=== PATIENT | female | born 1960 | race Caucasian/White ===

== ENCOUNTER → 2023-05-07 16:48 | Outpatient (REF) | payer OTHER, SELFPAY | LOC: RAD 16:48 | PROVIDERS: ATTENDING PHYSICIAN Nurse Practitioner; FAMILY PHYSICIAN Physician Assistant Medical | DX: N30.10 Interstitial cystitis (chronic) without hematuria (principal); N39.0 Urinary tract infection, site not specified; R35.0 Frequency of micturition | CPT/HCPCS: 76770; 76856 ==

== ENCOUNTER → 2023-07-01 16:44 | Outpatient (REF) | payer OTHER, SELFPAY | LOC: HWWDC 16:44 | PROVIDERS: ATTENDING PHYSICIAN Obstetrics & Gynecology; FAMILY PHYSICIAN Physician Assistant Medical | DX: Z12.31 Encounter for screening mammogram for malignant neoplasm of breast (principal) | CPT/HCPCS: 77063; 77067 ==

== ENCOUNTER → 2023-08-01 19:25 | Outpatient (REF) | payer OTHER, SELFPAY | LOC: MRI 3T 19:25 | PROVIDERS: ATTENDING PHYSICIAN Obstetrics & Gynecology; FAMILY PHYSICIAN Physician Assistant Medical | DX: R33.9 Retention of urine, unspecified (principal); N31.9 Neuromuscular dysfunction of bladder, unspecified | CPT/HCPCS: 72141; 72158; A9575 ==

== ENCOUNTER → 2023-08-04 17:28 | Outpatient (REF) | payer OTHER, SELFPAY | LOC: MRI 3T 17:28 | PROVIDERS: ATTENDING PHYSICIAN Obstetrics & Gynecology; FAMILY PHYSICIAN Physician Assistant Medical | DX: R33.9 Retention of urine, unspecified (principal); N31.9 Neuromuscular dysfunction of bladder, unspecified | CPT/HCPCS: 72157; A9575 ==

== ENCOUNTER 2023-10-22 06:13 | Day surgery (SDC) | payer OTHER, SELFPAY ==
[2023-09-29 08:32] LABS: Hematocrit 38.5 % (37.0-47.0); Hemoglobin 13.1 g/dL (12.0-16.0); Mean Corpuscular Volume 85.4 fL (81.0-99.0); Mean Platelet Volume 11.5 fL (7.4-10.4); Platelet Count 231 10^3/uL (130-400); Red Blood Cell Count 4.51 10^6/uL (4.20-5.40); Red Cell Dist. Width 12.6 % (11.5-14.5); White Blood Cell Count 5.9 10^3/uL (4.8-10.8)
[2023-09-29 08:58] LABS: ALT (SGPT) 28 U/L (0-35); AST (SGOT) 26 U/L (14-36); Albumin 4.5 g/dl (3.5-5.0); Alkaline Phosphatase 83 U/L (38-126); Blood Urea Nitrogen 16 mg/dl (7-17); Calcium 9.9 mg/dl (8.4-10.2); Carbon Dioxide 25 mmol/L (22-30); Chloride 103 mmol/L (98-107); Glucose 149 mg/dl (70-99); Potassium 3.8 mmol/L (3.5-5.1); Sodium 139 mmol/L (135-145); Total Bilirubin 0.6 mg/dl (0.2-1.3); Total Protein 7.2 g/dl (6.3-8.2); eGFR > 60.00
[2023-09-29 09:51] VITALS: BMI 29.0
--- NOTE | 2023-10-01 16:44 | PTCARENOTE ---
Abn ECG, Dr. Barakat Notified, no further requests made.
[2023-10-14 09:07] VITALS: BMI 29.0
[2023-10-22] VITALS (18 sets, daily range): BP systolic 98–136; BP diastolic 57–78; PULSE 84; O2SAT 97; BMI 29.0
[2023-10-22 06:45] LABS: Glucose - Point of Care 159 mg/dl (70-99)
[2023-10-22] MEDS: CELEBREX 200 MG PO (06:47)
[2023-10-22] MEDS: LYRICA 150 MG PO (06:47)
[2023-10-22] MEDS: NORMOSOL-R/PLASMALYTE-A 1000 IV ×3 (06:47→22:51)
[2023-10-22] MEDS: SKELAXIN 800 MG PO (06:47)
[2023-10-22] MEDS: VANCOCIN 200 IV ×2 (06:47→20:20)
[2023-10-22] MEDS: TYLENOL 1000 MG PO ×3 (06:47→20:21)
--- NOTE | 2023-10-22 08:02 | W.DS.TRANS ---
DC Summary - Relief Charge Nurse
-
Discharge Instructions:
Discharge Diagnosis/Procedures ACDF
Diet Diabetic, Carb Controlled
Activity No strenuous activity
Driving Restrictions No driving
Instructions:
Stand-Alone Forms:
Changes to Home Medications: Yes
Discharge Medications:
DC Medications w/original date entered in [facility]
lorazepam 2 mg tablet 1.5 mg PO HS 08/24/12
metformin 1,000 mg tablet 500 mg PO BID 08/24/12
atorvastatin 80 mg tablet 80 mg PO HS 10/14/23
bupropion HCl 300 mg 24 hr tablet, extended release 300 mg PO DAILY 10/14/23
cholecalciferol (vitamin D3) 50 mcg (2,000 unit) capsule (Vitamin D3) 50 mcg PO DAILY 10/14/23
escitalopram oxalate 20 mg tablet 20 mg PO DAILY 10/14/23
eszopiclone 3 mg tablet 3 mg PO HS 10/14/23
etanercept 50 mg/mL (1 mL) subcutaneous syringe (Enbrel) 50 mg SC QWEEK 10/14/23
glimepiride 2 mg tablet 2 mg PO DAILY 10/14/23
linaclotide 290 mcg capsule (Linzess) 290 mcg PO DAILY 10/14/23
prucalopride 2 mg tablet (Motegrity) 2 mg PO DAILY 10/14/23
tamsulosin 0.4 mg capsule 0.4 mg PO DAILY 10/14/23
tirzepatide 5 mg/0.5 mL subcutaneous pen injector (Mounjaro) 5 mg SC QWEEK 10/14/23
Saccharomyces boulardii 250 mg capsule (Florastor) 250 mg PO BID #1 cap 10/22/23
acetaminophen 325 mg capsule (Tylenol) 650 mg (2 x 325 mg) PO QID #2 caps 10/22/23
clindamycin HCl 300 mg capsule 300 mg PO QID infection prevention #20 caps 10/22/23
docusate sodium 100 mg capsule (Colace) 100 mg PO BID stool softner #1 cap 10/22/23
gabapentin 300 mg capsule 300 mg PO HS sleep/pain #10 caps 10/22/23
magnesium hydroxide 400 mg/5 mL oral suspension (Milk of Magnesia) 30 ml PO HS PRN Constipation #1 mL 10/22/23
ondansetron 4 mg disintegrating tablet 4 mg PO Q6H PRN n/v #20 tabs 10/22/23
oxycodone 5 mg tablet 5 mg PO Q6H PRN 1 tab moderate pain, 2 tabs severe pain #30 tabs 10/22/23
sennosides 8.6 mg tablet (Senokot) 17.2 mg (2 x 8.6 mg) PO BID laxative #2 tabs 10/22/23
Home Medication Changes
clindamycin HCl 300 mg capsule 300 mg PO QID infection prevention #20 caps 10/22/23
gabapentin 300 mg capsule 300 mg PO HS sleep/pain #10 caps 10/22/23
ondansetron 4 mg disintegrating tablet 4 mg PO Q6H PRN n/v #20 tabs 10/22/23
oxycodone 5 mg tablet 5 mg PO Q6H PRN 1 tab moderate pain, 2 tabs severe pain #30 tabs 10/22/23
Pending Results: No
[2023-10-22 09:24] LABS: Glucose - Point of Care 190 mg/dl (70-99)
[2023-10-22] MEDS: NOVOLOG vial 1 UNITS SC ×2 (09:46→11:41)
[2023-10-22 11:32] LABS: Glucose - Point of Care 189 mg/dl (70-99)
[2023-10-22] MEDS: SENOKOT PO (12:17)
[2023-10-22] MEDS: FLOMAX PO (12:18)
--- NOTE | 2023-10-22 12:45 | PTCARENOTE ---
Pt arrived to 2S in bed. Full assessment completed. Anterior neck DSG C/D/I, cervical collar maintained. Pt drowsy but easily arouses to verbal stimuli, ambulated to the BR with assistance via NSG staff, gait steady. Neurovascular assessment WDL.
IVF initiated. Bed locked and in the lowest position, safety maintained. Oriented to room and call love.
[2023-10-22] MEDS: LINZESS PO (13:24)
[2023-10-22] MEDS: COLACE PO (13:24)
[2023-10-22] MEDS: LEXAPRO PO (13:24)
[2023-10-22] MEDS: AMARYL PO (13:24)
[2023-10-22] MEDS: NOVOLOG FLEXPEN-MODERATE RESISTANCE SC (13:24)
[2023-10-22] MEDS: WELLBUTRIN XL (24 hour extended release) PO (13:25)
[2023-10-22] MEDS: ULTRAM PO (15:23)
[2023-10-22 17:27] LABS: Glucose - Point of Care 246 mg/dl (70-99)
[2023-10-22] MEDS: NOVOLOG FLEXPEN-MODERATE RESISTANCE 3 UNITS SC (17:41)
[2023-10-22] MEDS: GLUCOPHAGE 500 MG PO (17:43)
[2023-10-22] MEDS: ULTRAM 50 MG PO ×2 (17:45→22:22)
[2023-10-22] MEDS: ANESTHETIC LOZENGE 1 LOZENGE PO (20:21)
[2023-10-22] MEDS: LYRICA 75 MG PO (20:21)
[2023-10-22] MEDS: COLACE 100 MG PO (20:21)
[2023-10-22] MEDS: SENOKOT 17.2 MG PO (20:21)
--- NOTE | 2023-10-22 22:00 | PTCARENOTE ---
Pt. c/o chest pain around 2019 specifically stating her sternum 'ached' especially when she moved or swallowed. VSS and denied any other abnormal symptoms. EKG obtained and evaluated by house PLANNING ADVISOR. Troponin drawn and WNL. No further interventions
ordered. Instructed pt. to report worsening chest pain. Will continue to monitor.
[2023-10-22 22:20] LABS: Troponin I < 0.012 ng/ml
[2023-10-22] MEDS: ATIVAN 1.5 MG PO (22:21)
[2023-10-22] MEDS: NON-FORMULARY ITEM 3 MG PO (22:21)
[2023-10-22] MEDS: LIPITOR 80 MG PO (22:22)
[2023-10-22 22:25] LABS: Glucose - Point of Care 224 mg/dl (70-99)
[2023-10-23] MEDS: ULTRAM 50 MG PO ×3 (01:59→10:54)
[2023-10-23] MEDS: TYLENOL 1000 MG PO ×3 (01:59→12:31)
[2023-10-23 05:46] LABS: Hematocrit 34.5 % (37.0-47.0); Hemoglobin 11.9 g/dL (12.0-16.0)
[2023-10-23] MEDS: LYRICA 75 MG PO (06:15)
[2023-10-23 06:17] LABS: Blood Urea Nitrogen 15 mg/dl (7-17); Calcium 9.2 mg/dl (8.4-10.2); Carbon Dioxide 26 mmol/L (22-30); Chloride 102 mmol/L (98-107); Estimated Creatinine Clearance 73 ml/min; Glucose 153 mg/dl (70-99); Potassium 4.4 mmol/L (3.5-5.1); Sodium 139 mmol/L (135-145); eGFR > 60.00
[2023-10-23] MEDS: ANESTHETIC LOZENGE 1 LOZENGE PO (06:18)
--- NOTE | 2023-10-23 07:02 | W.PN.UPDATE ---
Update Note
Progress Note Update
RN notified PUNCH [facility], patient c/o sternal pain with deep breathing. Stable VS, EKG NORMAL SINUS RHYTHM
POSSIBLE LATERAL INFARCT , AGE UNDETERMINED
Troponin negative 0.012
pain medicine given, no further complaints, likely positional. If pain continuos, will consult Stopper Maker Helper.
[2023-10-23 07:30] VITALS: BP 106/75
--- NOTE | 2023-10-23 08:03 | W.DS.TRANS ---
DC Summary - Precision Assembler Bench
-
Discharge Instructions:
Discharge Diagnosis/Procedures ACDF
Diet Diabetic, Carb Controlled
Activity No strenuous activity
Driving Restrictions No driving
Instructions:
Stand-Alone Forms: [facility] Cervical D/C Inst.
Changes to Home Medications: No
Discharge Medications:
DC Medications w/original date entered in [facility]
lorazepam 2 mg tablet 1.5 mg PO HS 08/24/12
metformin 1,000 mg tablet 500 mg PO BID 08/24/12
atorvastatin 80 mg tablet 80 mg PO HS 10/14/23
bupropion HCl 300 mg 24 hr tablet, extended release 300 mg PO DAILY 10/14/23
cholecalciferol (vitamin D3) 50 mcg (2,000 unit) capsule (Vitamin D3) 50 mcg PO DAILY 10/14/23
escitalopram oxalate 20 mg tablet 20 mg PO DAILY 10/14/23
eszopiclone 3 mg tablet 3 mg PO HS 10/14/23
etanercept 50 mg/mL (1 mL) subcutaneous syringe (Enbrel) 50 mg SC QWEEK 10/14/23
glimepiride 2 mg tablet 2 mg PO DAILY 10/14/23
linaclotide 290 mcg capsule (Linzess) 290 mcg PO DAILY 10/14/23
prucalopride 2 mg tablet (Motegrity) 2 mg PO DAILY 10/14/23
tamsulosin 0.4 mg capsule 0.4 mg PO DAILY 10/14/23
tirzepatide 5 mg/0.5 mL subcutaneous pen injector (Mounjaro) 5 mg SC QWEEK 10/14/23
Saccharomyces boulardii 250 mg capsule (Florastor) 250 mg PO BID #1 cap 10/22/23
acetaminophen 325 mg capsule (Tylenol) 650 mg (2 x 325 mg) PO QID #2 caps 10/22/23
clindamycin HCl 300 mg capsule 300 mg PO QID infection prevention #20 caps 10/22/23
docusate sodium 100 mg capsule (Colace) 100 mg PO BID stool softner #1 cap 10/22/23
gabapentin 300 mg capsule 300 mg PO HS sleep/pain #10 caps 10/22/23
magnesium hydroxide 400 mg/5 mL oral suspension (Milk of Magnesia) 30 ml PO HS PRN Constipation #1 mL 10/22/23
ondansetron 4 mg disintegrating tablet 4 mg PO Q6H PRN n/v #20 tabs 10/22/23
oxycodone 5 mg tablet 5 mg PO Q6H PRN 1 tab moderate pain, 2 tabs severe pain #30 tabs 10/22/23
sennosides 8.6 mg tablet (Senokot) 17.2 mg (2 x 8.6 mg) PO BID laxative #2 tabs 10/22/23
Home Medication Changes
Pending Results: No
--- NOTE | 2023-10-23 08:03 | W.PN.SP ---
Today's Communication / Plan
-
s/p acdf
Doing well
PT
D/c
Subjective / Objective
Subjective Data
Arms better
Sore throat
Objective Data
Vital Signs
Temp Pulse Resp BP Pulse Ox
98.1 F 85 16 106/75 97
10/23/23 07:30 10/23/23 07:30 10/23/23 07:30 10/23/23 07:30 10/23/23 07:30
Intake and Output
10/22/23 10/23/23 10/24/23
06:59 06:59 06:59
Intake Total 1760 / 1760
Output Total 210 / 210
Balance 1550 / 1550
Intake:
Oral fluids 360 / 360
IV fluids (Total) 1400 / 1400
Normosol 400 / 400
Output:
Urine, Voided 210 / 210
Other:
Number of approximated MODERATE 3
amounts of urine
Lab Data
10/23/23 04:56
10/23/23 04:56
Physical Exam
-
No focal deficits
[2023-10-23 08:26] LABS: Glucose - Point of Care 160 mg/dl (70-99)
[2023-10-23] MEDS: SENOKOT 17.2 MG PO (08:29)
[2023-10-23] MEDS: LEXAPRO 20 MG PO (08:29)
[2023-10-23] MEDS: WELLBUTRIN XL (24 hour extended release) 300 MG PO (08:29)
[2023-10-23] MEDS: AMARYL 2 MG PO (08:29)
[2023-10-23] MEDS: COLACE 100 MG PO (08:29)
[2023-10-23] MEDS: GLUCOPHAGE 500 MG PO (08:30)
[2023-10-23] MEDS: NOVOLOG FLEXPEN-MODERATE RESISTANCE 1 UNITS SC (08:30)
[2023-10-23] MEDS: LINZESS 290 MCG PO (08:30)
[2023-10-23] MEDS: NORMOSOL-R/PLASMALYTE-A 1000 IV (08:34)
[2023-10-23] MEDS: FLOMAX 0.4 MG PO (08:34)
[2023-10-23 09:16] VITALS: BP 126/69; PULSE 74
--- NOTE | 2023-10-23 10:44 | CM ---
Addendum entered by Zee Hayes RN 10/23/23 12:54:
Per PT, patient needs a walker and they can not provide due to [id number] with her insurance. Script obtained and faxed to [facility]. Patient updated. [facility] will contact the patient to make delivery.
Original Note:
Reviewed the chart notes and spoke with the patient at the bedside. The patient resides in a two story home with a basement. The patient's two sons and [id number] and four grandchildren recently moved into the home. The patient reports no
DME/VN/SNF in the past. The patient confirmed her pharmacy of choice is the [facility]. CM continues to be available to patient/family and is monitoring medical plan for needs at discharge.
Plan: Discharge to home when medically stable. No needs anticipated.
[2023-10-23 11:25] VITALS: BP 113/70; BP 114/69; BP 121/73; PULSE 72; PULSE 75; PULSE 82
[2023-10-23 11:30] VITALS: BP 114/69
--- NOTE | 2023-10-23 11:48 | W.PN.ORTHO ---
Today's Communication / Plan
-
d/c when stable
Assessment
.
Distal Motor Intact: Yes
Dressing:
Clean, dry and intact.
Assessment:
Dizzy POD#1-hx vertigo--+ Midodrine and Meclizine-bolus IVF and recheck orthostatics
Substernal discomfort -troponin in range--EKG lead [id number] now denies symptoms but does describe radiating throat discomfort which is secondary to surgery-repeat EKG
Plan
.
Surgery / Date: C5-6-[address] Chavarria 10/22/23
Activity:
Out of bed.
PT/OT
Discharge Plan: Home
Subjective
.
.:
Patient resting comfortably.
Vital Signs and Labs
.
Vital Signs and Labs:
Lab Results
10/23/23 04:56
10/23/23 04:56
Temp Pulse Resp BP Pulse Ox
98.1 F 72 16 114/69 94
10/23/23 11:30 10/23/23 11:30 10/23/23 11:30 10/23/23 11:30 10/23/23 11:30
Physical Exam
-
HEENT: No pallor, cyanosis, or jaundice. Throat clear.
NECK: Supple. No JVD.
RESPIRATORY: Lungs clear to auscultation.
CVS: S1, S2 normal. RRR.� No murmur, rub or gallop.
ABDOMEN: Soft, non-tender. No distension. BS+/normal.
EXTREMITIES: strength equal, no calf pain with palpation
SEISMOGRAPH CHIEF: AOx3. No focal deficits. export traffic department manager grossly intact
[2023-10-23 11:52] VITALS: BP 113/70; BP 114/69; BP 121/73; PULSE 72; PULSE 74; PULSE 82
[2023-10-23] MEDS: ANTIVERT 25 MG PO (12:31)
[2023-10-23] MEDS: ProAmatine 5 MG PO (12:31)
[2023-10-23 13:13] LABS: Glucose - Point of Care 105 mg/dl (70-99)
[2023-10-23] MEDS: NOVOLOG FLEXPEN-MODERATE RESISTANCE SC (13:16)
[2023-10-23 13:54] VITALS: BP 113/66; BP 118/67; BP 123/67; PULSE 81; PULSE 82
--- NOTE | 2023-10-23 13:56 | PTCARENOTE ---
Pts EKG completed and reviewed per Alexsander Diane. Bolus completed and pt negative for orthostasis. Pt continues to c/o drowsiness but states that ' the dizziness i had earlier seems to be lessening'. Pt ok to be discharged per Alexsander Diane PA-c.
== END 2023-10-23 14:30 | disposition home or self-care (01) ==
LOC: SDS 06:13
PROVIDERS: Nurse Practitioner Gerontology; Physician Assistant Medical; ATTENDING PHYSICIAN Orthopaedic Surgery Orthopaedic Surgery of the Spine; FAMILY PHYSICIAN Physician Assistant Medical
DX: M48.02 Spinal stenosis, cervical region (principal); G95.89 Other specified diseases of spinal cord; M54.12 Radiculopathy, cervical region
CPT/HCPCS: 22551; 22552; 22853 ×2; 20930; 36415; 72020; 80048; 80053; 82962; 84484; 85014; 85018; 85027; 87070; 87147; 93005; 97116; 97162; 97166; 97530; 97535; C1713

== ENCOUNTER 2023-10-24 15:25 | Inpatient (IN) | payer OTHER, SELFPAY ==
[2023-10-24] VITALS (17 sets, daily range): BP systolic 66–133; BP diastolic 33–104; PULSE 70–84; BMI 30.1; BMI 29.1
--- NOTE | 2023-10-24 06:54 | ED.GENMED ---
History of Present Illness
General
Chief Complaint: Dizziness
Source: patient
Exam Limitations: none
Time Seen by Provider: 10/24/23 06:43
Nursing documentation reviewed up to this point in time: agreed with
History of Present Illness
History of Present Illness:
Patient status post cervical fusion surgery and discharged home yesterday afternoon, presents to ED secondary to recurrent dizziness, shortly after returning home. Patient does have history of vertigo and was experiencing dizziness during
hospitalization as well. However, patient states that she did not have significant dizziness when she went home, although admittedly reports feeling groggy and sleeping since being discharged home from the hospital. Patient has not had anything to
eat since being discharged home. Denies headache. Denies blurred vision. Denies double vision. Denies loss of sensation or weakness. Patient reports difficulty ambulating secondary to dizziness. Denies difficulty with speech or swallowing.
Patient denies chest pain or shortness of breath. However, upon arrival, patient is found to be hypoxic. Patient does report that she was receiving supplemental oxygen during hospitalization, but does not know why.
Past History
Past History
ED Past Medical History: HTN, Hypercholesterolemia, NIDDM, Other (RA) and Other (Kidney stones)
ED Past Surgical History: Gynecological
Social History
Tobacco: Non-smoker
Personal:
Family History
Family History: Unable to obtain
Review of Systems
Review of Systems
Allergies reviewed?: Yes
All Other Systems: ROS reviewed and negative except as documented in HPI and ROS
Constitutional: Reports no symptoms; Denies fever
EENT: Reports no symptoms
Respiratory: Reports no symptoms
Cardiac: Reports no symptoms
ABD/GI: Reports no symptoms; Denies nausea or vomiting
Musculoskeletal: Reports no symptoms
Skin: Reports no symptoms
Neurological: Reports dizzy; Denies headache, weakness or numbness
Phy Exam
Physical Exam
Physical Exam:
Physical Exam
General: no apparent distress, not acutely ill. afebrile
Head: nc/at. eomi. no nystagmus.
Neck: supple. no meningeal signs.
Heart: s1/s2 regular rate and rhythm, no murmur. equal radial pulses.
Lungs: no acute respiratory distress. clear bilaterally
Abdomen: normal bowel sounds. not tender.
Neuro: alert and oriented x 3. no focal neurological deficits. normal speech.
Skin: no rash
Psychiatric: well kept. interactive and cooperative
Extremities: no edema. no calf tenderness.
Course
Orders/Labs/Results
Orders:
Orders
10/24/23 06:52
Electrocardiogram (*1) Urgent
Reason for Study: Vertigo / Dizzy
EKG- Treatment ONCE
Meclizine [Antivert] 25 mg PO NOW STA
10/24/23 06:53
0.9% Sodium Chloride 1000 ml [Nss] 1,000 ml IV BOLUS
10/24/23 07:11
Complete Blood Count/With Diff Urgent
Comprehensive Metabolic Panel Urgent
Magnesium Urgent
10/24/23 10:02
Urinalysis Reflex To Culture Urgent
Date Specimen was Collected: 10/24/23
Time Specimen was Collected: 09:34
10/24/23 10:05
COVID-19 Antigen Urgent
Source: Nasal Swab
10/24/23 11:55
Dexamethasone Sod Phosphate [Decadron] 6 mg IV NOW STA
10/24/23 12:00
0.9% Sodium Chloride 500 ml [Nss] 500 ml IV 100 mls/hr
10/24/23 14:42
Admit/Transfer Patient As Directed
Co-Sign Provider:
Level of Care: Inpatient admission
Assign to:: Telemetry
Physician / Group: hospitalist
Diagnosis: covid
Reason for Telemetry: Arrhythmia
Date to Stop Telemetry: 10/27/23
Time to Stop Telemetry: 11:00
Reason for Hospitalization: covid
Expected length of stay greater than two midnights?: Yes
ELOS- Estimated Length of Stay in days: 3
I certify the patient meets the requirements for IP care: Yes
PRN Pain Medication Management As Directed
May give lesser potent ordered pain med per pt: Yes
preference::
Protocol:: Medication orders for pain may be administered in a
manner that supports deferring to patient preference
when the pt is:
- Requesting an ordered lesser potent pain medication.
Least to most potent pain medications are defined
as: acetaminophen < NSAID < tramadol < opioids
(morphine, oxycodone, hydromorphone).
- Requesting a lesser dose of the same medication IF
ORDERED.
- Requesting a less intrusive route of administration
if both routes are prescribed by the provider (PO <
IV).
10/24/23 14:57
Code Status As Directed
Resuscitation Status: Full Code
10/24/23 Dinner
1800 calorie (15 carb) Diabetic
At Your Request: Full Participation
10/24/23 16:59
Benzonatate [Tessalon Perles] 200 mg PO TIDPRN PRN
Ondansetron Orally Disint [Zofran Odt (Orally Disintegrating)] 4 mg PO Q6H PRN
Oxycodone [Roxicodone] 5 mg PO Q6HPRN PRN
tirzepatide [Mounjaro] 5 mg SC QWEEK
10/24/23 16:59
Admit Patient As Directed
Co-Sign Provider:
Level of Care: Inpatient admission
Assign to:: Telemetry
Physician / Group: hospitalist
Diagnosis: covid
Reason for Telemetry: Arrhythmia
Date to Stop Telemetry: 10/27/23
Time to Stop Telemetry: 11:00
Reason for Hospitalization: covid
Expected length of stay greater than two midnights?: Yes
ELOS- Estimated Length of Stay in days: 3
I certify the patient meets the requirements for IP care: Yes
INFECTIOUS DISEASE CONSULT Routine
Consulting Provider: Heidy Preciado
Was physician already notified: Yes
Activity As Directed
Activity Level: Out of Bed-Early Mobility
Intake/ Output As Directed
Frequency: Per unit guidelines
Pneumatic Compression Sleeves As Directed
Type: Knee high
Precautions As Directed
Type of Precautions: Novel Respiratory
Vital Signs As Directed
Frequency: Per unit guidelines
Weight As Directed
Frequency: Once
Comment: on admission
O2 Therapy [RESP] Routine
Titrate/Wean O2 to maintain O2 sat greater than (%): 92
Special Instructions: nasal cannula oxygen to maintain O2 saturation as noted above. then wean as tolerated.
Do NOT humidify nasal cannula O2
DX Deep Vein Thrombosis Video Routine
10/24/23 17:14
Acetaminophen [Tylenol] 650 mg PO Q4HPRN PRN
10/24/23 18:00
Clindamycin HCl [Cleocin] 300 mg PO QID
10/24/23 20:00
Docusate Sodium [Colace] 100 mg PO BID
Saccharomyces Boulardii [Florastor] 250 mg PO BID
Sennosides [Senokot] 17.2 mg PO BID
10/24/23 22:00
Atorvastatin [Lipitor] 80 mg PO HS
Gabapentin [Neurontin] 300 mg PO HS
Lorazepam [Ativan] 1.5 mg PO HS
Zolpidem Tartrate [Ambien] 10 mg PO HS
10/25/23 07:25
Magnesium IN AM
10/25/23 08:00
Bupropion(24Hr)Extended Releas [WELLBUTRIN XL (24 hour extended release)] 300 mg PO DAILY
Cholecalciferol (Vitamin D3) [VITAMIN D3 (cholecalciferol)] 50 mcg PO DAILY
Dexamethasone [Decadron] 6 mg PO DAILY
Escitalopram Oxalate [Lexapro] 20 mg PO DAILY
Glimepiride [Amaryl] 2 mg PO DAILY
Linaclotide [Linzess] 290 mcg PO DAILY
Tamsulosin [Flomax] 0.4 mg PO DAILY
prucalopride [Motegrity] See Dose Instructions PO DAILY
10/27/23 11:00
DC Protocol for Telemetry ONCE
Abnormal Lab Results
10/24/23 10/24/23 10/24/23
07:11 10:02 10:05
RBC 3.97 L 10^6/uL
(4.20-5.40)
Hgb 11.6 L g/dL
(12.0-16.0)
Hct 34.1 L %
(37.0-47.0)
MPV 11.0 H fL
(7.4-10.4)
Abs Immat Gran (auto) 0.1 H 10^3/uL
(0-0.05)
Absolute Monos (auto) 1.2 H 10^3/uL
(0.1-0.6)
Lymphocytes % 19.4 L %
(20.5-51.1)
Monocytes % 12.4 H %
(1.7-9.3)
BUN 19 H mg/dl
(7-17)
Glucose 112 H mg/dl
(70-99)
Magnesium 1.5 L mg/dl
(1.6-2.3)
Total Protein 6.1 L g/dl
(6.3-8.2)
Urine Ketones 2+ A
(Negative)
SARS-CoV-2 Antigen Positive A
(Negative)
10/24/23 07:11
10/24/23 07:11
Vital Signs
Initial and Last Documented VS:
Initial Vital Signs
Temp Pulse Resp BP Pulse Ox
99.5 F 80 18 118/62 86
10/24/23 06:47 10/24/23 06:47 10/24/23 06:47 10/24/23 06:47 10/24/23 06:47
Last Documented Vital Signs
Temp Pulse Resp BP Pulse Ox
98.4 F 72 16 143/81 95
10/25/23 07:00 10/25/23 07:00 10/25/23 07:00 10/25/23 07:00 10/25/23 07:00
MDM/Problems Addressed
MDM/Problems Addressed:
COVID19 positive - patient continuing to require supplemental oxygen.
Dizziness, likely multifactorial - dehydration/recent surgery/hypoxia/underlying hx vertigo.
*EKG
Interpreted by ED Provider?: Yes
EKG Intrepretation Date: 10/24/23
Heart Rate: 76
Rate: normal
Rhythm: sinus
[place]: normal axis
Interval: normal interval
QRS Pattern: normal QRS
*Critical Care Note
Total Time (30-74mins, 75-104mins- exclusive of procedures): Not Applicable
ED Attending Note
-
Portions of this chart may have been created with voice recognition software.� Occasional wrong word or��sound alike� substitutions may have occurred due to the inherent limitations of voice recognition software.
Discharge Plan
Departure
Patient Disposition: Admit
Date of Disposition: 10/24/23
Time of Disposition: 13:00
Admit to: Telemetry
Presentation/result/management discussed w/ accepting MD/DO: Hospitalist
Discharge Problem:
COVID-19, Dizziness, Dehydration
Interventions
Interventions:
*Risk Screen - Suicide Last Done: 10/24/23 16:56
*General Assessment Last Done: 10/24/23 07:00
*Neglect/Abuse Screening Last Done: 10/24/23 06:47
ED- Fall Risk Assessment Last Done: 10/24/23 07:00
*ED COVID-19 Vaccine History Last Done: 10/24/23 16:56
*Nursing Disposition Last Done: 10/24/23 17:05
ED- Neurological Assessment Last Done: 10/24/23 07:00
ED Swallowing Screen Last Done: 10/24/23 07:50
Discharge Date and Time
Discharge Date/Time: 10/24/23 17:05
[2023-10-24] MEDS: NSS 1000 IV (07:18)
[2023-10-24 07:39] LABS: % Basophils 0.3 % (0-2); % Eosinophils 0.1 % (0-6); % Immature Granulocytes 0.5 % (0-0.5); % Lymphocytes 19.4 % (20.5-51.1); % Monocytes 12.4 % (1.7-9.3); % Neutrophils 67.3 % (42.2-75.2); Absolute Immature Granulocytes 0.1 10^3/uL (0-0.05); Absolute Lymphocytes 1.8 10^3/uL (1.2-3.4); Absolute Monocytes 1.2 10^3/uL (0.1-0.6); Absolute Neutrophils 6.3 10^3/uL (1.4-6.5); Hematocrit 34.1 % (37.0-47.0); Hemoglobin 11.6 g/dL (12.0-16.0); Mean Corpuscular Hgb 29.2 pg (27.0-31.0); Mean Corpuscular Volume 85.9 fL (81.0-99.0); Nucleated Red Blood Cells % 0 %; Platelet Count 164 10^3/uL (130-400); Red Blood Cell Count 3.97 10^6/uL (4.20-5.40); Red Cell Dist. Width 12.9 % (11.5-14.5); White Blood Cell Count 9.4 10^3/uL (4.8-10.8)
[2023-10-24 07:51] LABS: ALT (SGPT) 19 U/L (0-35); AST (SGOT) 20 U/L (14-36); Albumin 3.6 g/dl (3.5-5.0); Alkaline Phosphatase 81 U/L (38-126); Blood Urea Nitrogen 19 mg/dl (7-17); Calcium 8.6 mg/dl (8.4-10.2); Carbon Dioxide 28 mmol/L (22-30); Chloride 101 mmol/L (98-107); Estimated Creatinine Clearance 65 ml/min; Glucose 112 mg/dl (70-99); Magnesium 1.5 mg/dl (1.6-2.3); Potassium 3.8 mmol/L (3.5-5.1); Sodium 138 mmol/L (135-145); Total Bilirubin 0.7 mg/dl (0.2-1.3); Total Protein 6.1 g/dl (6.3-8.2); eGFR > 60.00
[2023-10-24] MEDS: ANTIVERT 25 MG PO (08:34)
[2023-10-24 10:24] LABS: COVID-19 Antigen Positive (Negative)
[2023-10-24 10:43] LABS: Urine Albumin Negative (Neg - Trace); Urine Bilirubin Negative (Negative); Urine Character Clear (Clear); Urine Color Yellow; Urine Glucose Negative (Negative); Urine Ketone 2+ (Negative); Urine Leukocyte Negative (Negative); Urine Nitrite Negative (Negative); Urine Occult Blood Negative (Negative); Urine Specific Gravity 1.015 (<1.030); Urine Urobilinogen Negative (Neg - 1+)
--- NOTE | 2023-10-24 11:36 | EDRN ---
1000 today the patient remembered that her son that lives with her had COVID 2 weeks ago. This RN ordered a COVID test and sent it off. Patient states she did not think of it as important as it is like the flu. Educated patient that even the flu can
be dangerous to certain people. Reminded patient that she is currently on O2 via nasal as her SPO2 drops when supine or room air.
[2023-10-24] MEDS: DECADRON 6 MG IV (13:16)
[2023-10-24] MEDS: NSS 500 IV ×2 (13:17→18:19)
--- NOTE | 2023-10-24 16:58 | CON.ID ---
Consultation
-
Date/Time Consultation Requested: 10/24/23 15;14
Date/Time Consultation Performed: 10/24/23 16:59
Requesting Provider: Dr Valdes
Performing Provider: Dr Preciado
Reason for Consultation: covid
Chief Complaint / Past History
Chief Complaint
dizziness
History of Present Illness
Ms Hendricks is a 62 year old female with history of RA on enbrel for years (held last 3 weeks for recent cervical fusion) presenting for increased dizziness, fatigue, anorexia. Denies headache. Denies blurred vision. Denies double vision. Denies
loss of sensation or weakness. Patient reports difficulty ambulating secondary to dizziness. Minimal nonproductive cough. No sore throat, nausea, vomiting, diarrhea, rash.
Since arrival here she has been afebrile, bp stable, hypoxemia to 80s on room air now on 3L O2 sating high 90s, wbc 9.4, hgb 11.6, plt 164, no L shift, there is lymphopenia, cr 0.8, t bili 0.7, ast 20, alt 19, alk ohs 81, covid ag positive, cxr:
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
Past History
Additional Past Medical History:
HTN, Hypercholesterolemia, NIDDM, Other (RA) and Other (Kidney stones)
Additional Past Surgical History:
Gynecological
Allergy History:
amoxicillin [Amoxicillin] Allergy (Verified 10/24/23 06:46)
'gets beet red'
doxycycline [Doxycycline] Allergy (Verified 10/24/23 06:46)
Hives
hydroxychloroquine sulfate [From Plaquenil] Allergy (Verified 10/24/23 06:46)
sun related rash,itching
methotrexate [Methotrexate] Allergy (Verified 10/24/23 06:46)
Rash
Penicillins Allergy (Verified 10/24/23 06:46)
'gets beet red'
Medications Reviewed: Yes
Social History
Tobacco: Non-Smoker
Personal:
Family History
Family History: Not Pertinent
Review of Systems
Review of Systems
General: Negative Fever or Chills
All systems: All other systems were reviewed and were negative
Vital Signs
Temp Pulse Resp BP Pulse Ox
99.5 F 83 18 131/56 98
10/24/23 06:47 10/24/23 13:45 10/24/23 13:45 10/24/23 13:00 10/24/23 13:45
Physical Exam
Physical Exam
Constitutional: No Acute Distress
Head: Other (soft c spine collar in place)
Cardiovascular: Regular Rate and S1/S2; Negative Murmur or Rub
Pulmonary: Clear and Symmetric; Negative Wheezes, Rales or Rhonchi
Gastrointestinal: Soft, Non Tender, Non Distended and Normal Bowel Sounds
Skin: Warm and Dry; Negative Rash or Jaundice
Lab / Diagnostic Study Results
10/24/23 07:11
10/24/23 07:11
Abs Immat Gran (auto) 0.1 10^3/uL (0-0.05) H 10/24/23 07:11
Absolute Neuts (auto) 6.3 10^3/uL (1.4-6.5) 10/24/23 07:11
Absolute Lymphs (auto) 1.8 10^3/uL (1.2-3.4) 10/24/23 07:11
Absolute Monos (auto) 1.2 10^3/uL (0.1-0.6) H 10/24/23 07:11
Absolute Basos (auto) 0.0 10^3/uL (0-0.2) 10/24/23 07:11
Immature Gran % 0.5 % (0-0.5) 10/24/23 07:11
Neutrophils % 67.3 % (42.2-75.2) 10/24/23 07:11
Lymphocytes % 19.4 % (20.5-51.1) L 10/24/23 07:11
Monocytes % 12.4 % (1.7-9.3) H 10/24/23 07:11
Eosinophils % 0.1 % (0-6) 10/24/23 07:11
Basophils % 0.3 % (0-2) 10/24/23 07:11
Assessment / Plan
Mild Covid Infection
Hypoxemia
Immunosuppression (currently on hold)
- continue to hold enbrel
- agree with paxlovid and steroids
- low O2 requirements
- would not recommend antibiotics at this time - follow clinically
--- NOTE | 2023-10-24 17:49 | HPS.HSE ---
Addendum entered and electronically signed by Sherie Montoya MD 10/24/23 18:51:
I personally performed a history and physical exam of the patient and discussed management with the resident. I reviewed the resident's note and agree with the documented findings and plan of care HPI/CC.
GENERAL: well developed, well nourished, ill appearing female in no apparent distress
HEENT: NC/AT-- 3L O2 NC--soft cervical collar in place
HEART: regular rate and rhythm, +S1, +S2
LUNGS : rhonchi at bases bilaterally
ABDOM: soft, nontender, nondistended, + bowel sounds
EXT: no cyanosis, clubbing, or edema
NEUROLOGIC: grossly intact
Dizziness/weakness/fatigue with acute hypoxemic resp insufficiency (on 3L)--mild cough--likely due to COVID--cannot give Paxlovid (contraindicated with tamsulosin)--will give decadron and start RemD--wean O2 to off--hold immunosuppressives--apprec
ID--CXR with Moderate bilateral lower lobe airspace consolidation--doubt bacterial PNA--hold on abx for now--tessalon
Cervical spine stenosis s/p RECENT 10/23/23 cervical spine fusion--Continue clindamycin as prescribed by (he has been updated)--For DVT prophylaxis, recommended SCDs, aspirin twice daily starting tomorrow with lovenox to start Friday if pt
still here--Continue pain control with Tylenol/oxycodone as needed
Rheumatoid arthritis--Enbrel on hold
Diabetes mellitus type 2--Continue sitagliptin, metformin, glimepiride--SSI
Hyperlipidemia--Continue atorvastatin
Depression/anxiety--Continue bupropion, escitalopram--Zolpidem
History of urethral stricture--Continue tamsulosin.
DVT prophylaxis�SCDs
Full code
Original Note:
Family Physician
-
Family Physician: Marga Peralta
Chief Complaint
-
Dizziness
History of Present Illness
62-year-old female, Ms. Mary Carmen Hendricks with past medical history significant for chronic immunosuppression on Enbrel for RA, DM type II, hyperlipidemia, GERD, depression, cervical stenosis s/p cervical spine fusion on 10/22/2023 (Dr. Chavarria ) presented to
the ER reporting dizziness, fatigue. Patient reports having congestion, mild headache, lethargy which all started early in the morning at that time she woke up. Patient reports having dizziness, not able to ambulate properly, was holding onto the
table, bed and onto the cosby for support. Patient reports exposure to sick contacts�her son and her 2 granddaughters tested positive for COVID last week. No history of trauma, loss of consciousness, nausea/vomiting, rash, blurry vision, chest
pain, abdominal pain, calf pain, bladder/bowel issues. Patient reports having productive cough.
On presentation in the ER, hypoxemia to 80s on room air, requiring 3 L nasal cannula. WBC 9.4, hemoglobin 11.6, no left shift. Patient tested positive for COVID in the ER.
Medical History
Past Medical History
Past Medical History: Reports NIDDM and Other (Rheumatoid arthritis, GERD, depression/anxiety, hyperlipidemia)
Additional Past Medical History:
Rheumatoid arthritis, diabetes mellitus type 2, hyperlipidemia, GERD, depression
Past Surgical History: Reports
Additional Past Surgical History:
Endometrial ablation, cervical spine fusion
Social History
Tobacco: Non-smoker
Alcohol: None
Drug: None
Living: With Family
Employment: Employed
Family History
Family History: Other (Klatskin's tumor in mother)
Allergies / Home Medications
Allergies reflects when Allergies were last updated in [facility].
Home Medications with original date entered in [facility]
Allergy/Medication List:
Allergies
Allergy/AdvReac Type Severity Reaction Status Date / Time
amoxicillin [Amoxicillin] Allergy 'gets beet Verified 10/24/23 06:46
red'
doxycycline [Doxycycline] Allergy Hives Verified 10/24/23 06:46
hydroxychloroquine sulfate Allergy sun Verified 10/24/23 06:46
[From Plaquenil] related
rash,itching
methotrexate [Methotrexate] Allergy Rash Verified 10/24/23 06:46
Penicillins Allergy 'gets beet Verified 10/24/23 06:46
red'
Home Medications
atorvastatin 80 mg tablet 80 mg PO HS 10/14/23
bupropion HCl 300 mg 24 hr tablet, extended release 300 mg PO DAILY 10/14/23
cholecalciferol (vitamin D3) 50 mcg (2,000 unit) capsule (Vitamin D3) 50 mcg PO DAILY 10/14/23
escitalopram oxalate 20 mg tablet 20 mg PO DAILY 10/14/23
eszopiclone 3 mg tablet 3 mg PO HS 10/14/23
etanercept 50 mg/mL (1 mL) subcutaneous syringe (Enbrel) 50 mg SC MO 10/14/23
glimepiride 2 mg tablet 2 mg PO HS 10/14/23
linaclotide 290 mcg capsule (Linzess) 290 mcg PO DAILY 10/14/23
prucalopride 2 mg tablet (Motegrity) 2 mg PO HS 10/14/23
tamsulosin 0.4 mg capsule 0.4 mg PO DAILY 10/14/23
tirzepatide 5 mg/0.5 mL subcutaneous pen injector (Mounjaro) 5 mg SC MO 10/14/23
clindamycin HCl 300 mg capsule 300 mg PO QID infection prevention #20 caps 10/22/23
gabapentin 300 mg capsule 300 mg PO HS sleep/pain #10 caps 10/22/23
acetaminophen 650 mg tablet,extended release (Tylenol Arthritis Pain) 1,300 mg PO Q8HPRN PRN mild pain 10/24/23
lorazepam 1 mg tablet 1.5 mg PO HS 10/24/23
naproxen 500 mg tablet 500 mg PO BIDPRN PRN moderate pain 10/24/23
ondansetron 4 mg disintegrating tablet 4 mg PO Q6HPRN PRN n/v 10/24/23
oxycodone 5 mg tablet 5 mg PO Q6HPRN PRN 1 tab moderate pain, 2 tabs severe pain 10/24/23
sitagliptin phosphate 50 mg-metformin 1,000 mg tablet (Janumet) 2 tab PO DAILY 10/24/23
Review of Systems
-
A 12 point ROS was completed and negative except as noted: Yes
Physical Exam
Vital Signs
Vital Signs
Temp Pulse Resp BP Pulse Ox
98.6 F 96 18 132/89 98
10/24/23 17:05 10/24/23 17:05 10/24/23 17:05 10/24/23 17:05 10/24/23 17:05
Physical Exam
General: Comfortable
HEENT: NormoCephalic and Anicteric
Respiratory: Clear and Other (On 3 L nasal cannula)
Cardiac: S1/S2 and Regular Rhythm
GI: Soft, Non Tender, Non Distended and Normal Bowel Sounds
Skin: Warm and Dry
Neuro: Awake, Alert, Oriented and AO x 3
Psych: Calm
Laboratory Results
-
10/24/23 07:11
10/24/23 07:11
Laboratory Results
Total Bilirubin 0.7 mg/dl (0.2-1.3) 10/24/23 07:11
AST 20 U/L (14-36) 10/24/23 07:11
ALT 19 U/L (0-35) 10/24/23 07:11
Alkaline Phosphatase 81 U/L (38-126) 10/24/23 07:11
Impression/Plan
-
62-year-old female, presenting to the ER with dizziness, headache, lethargy. Patient tested COVID-positive in the ER.
IMPRESSION:
Dizziness
Hypoxemic respiratory insufficiency/COVID
Cervical spine stenosis s/p cervical spine fusion on 10/22/2023
Rheumatoid arthritis
Diabetes mellitus type 2
Hyperlipidemia
GERD
Depression
PLAN:
Dizziness
Likely from dehydration versus hypoxemia.
EKG�normal sinus rhythm
Patient had a history of BPPV/vertigo for which she uses meclizine as needed. Patient reports she did not require to use in the recent past.
Continue IV fluids
Hypoxic respiratory insufficiency
Patient tested positive for COVID
Currently on 3 L nasal cannula
Maintain SpO2 92�96%
Started on dexamethasone 6 mg
Started on Paxlovid
Tessalon Perles for cough
Chest x-ray
Patient on chronic immunosuppression, ID consulted for input
Cervical spine stenosis s/p cervical spine fusion
Updated Dr. Chavarria.
For DVT prophylaxis, recommended SCDs, aspirin twice daily from tomorrow.
Continue clindamycin as prescribed by .
Continue pain control with Tylenol/oxycodone as needed
Rheumatoid arthritis
Enbrel on hold
Diabetes mellitus type 2
Continue sitagliptin, metformin, glimepiride
SSI
Hyperlipidemia
Continue atorvastatin
Depression/anxiety
Continue bupropion, escitalopram
Zolpidem
History of urethral stricture
Continue tamsulosin.
DVT prophylaxis�SCDs
Full code
[2023-10-24] MEDS: CLEOCIN 300 MG PO ×2 (17:53→22:00)
[2023-10-24] MEDS: GLUCOPHAGE 1000 MG PO (18:20)
[2023-10-24] MEDS: JANUVIA 50 MG PO (18:20)
[2023-10-24] MEDS: VEKLURY 250 MG IV (20:21)
[2023-10-24] MEDS: NSS 30 IV (20:23)
[2023-10-24] MEDS: ROXICODONE 5 MG PO (20:45)
[2023-10-24] MEDS: FLORASTOR 250 MG PO (20:49)
[2023-10-24] MEDS: TYLENOL 650 MG PO (20:50)
[2023-10-24] MEDS: TESSALON PERLES 200 MG PO (20:51)
[2023-10-24 21:47] LABS: Glucose - Point of Care 191 mg/dl (70-99)
[2023-10-24] MEDS: LIPITOR 80 MG PO (22:00)
[2023-10-24] MEDS: AMBIEN 10 MG PO (22:00)
[2023-10-24] MEDS: ATIVAN 1.5 MG PO (22:00)
[2023-10-24] MEDS: NEURONTIN 300 MG PO (22:00)
[2023-10-25] MEDS: NSS IV (00:30)
[2023-10-25] MEDS: NSS 1000 IV ×2 (00:50→12:00)
[2023-10-25 03:39] VITALS: BP 128/72
[2023-10-25 07:00] VITALS: BP 143/81
[2023-10-25 08:12] LABS: ALT (SGPT) 16 U/L (0-35); AST (SGOT) 18 U/L (14-36); Albumin 3.4 g/dl (3.5-5.0); Alkaline Phosphatase 75 U/L (38-126); Blood Urea Nitrogen 13 mg/dl (7-17); Calcium 9.1 mg/dl (8.4-10.2); Carbon Dioxide 29 mmol/L (22-30); Chloride 103 mmol/L (98-107); Estimated Creatinine Clearance 85 ml/min; Glucose 137 mg/dl (70-99); Magnesium 1.7 mg/dl (1.6-2.3); Potassium 4.3 mmol/L (3.5-5.1); Sodium 142 mmol/L (135-145); Total Bilirubin 0.6 mg/dl (0.2-1.3); Total Protein 6.1 g/dl (6.3-8.2); eGFR > 60.00
[2023-10-25] MEDS: DECADRON 6 MG PO (10:30)
[2023-10-25] MEDS: FLORASTOR 250 MG PO ×2 (10:30→20:50)
[2023-10-25] MEDS: GLUCOPHAGE 1000 MG PO ×2 (10:30→17:27)
[2023-10-25] MEDS: FLOMAX 0.4 MG PO (10:30)
[2023-10-25] MEDS: VITAMIN D3 (cholecalciferol) 50 MCG PO (10:30)
[2023-10-25] MEDS: CLEOCIN 300 MG PO ×4 (10:30→21:06)
[2023-10-25] MEDS: JANUVIA 50 MG PO ×2 (10:31→17:28)
[2023-10-25] MEDS: AMARYL 2 MG PO (10:31)
[2023-10-25] MEDS: LEXAPRO 20 MG PO (10:32)
[2023-10-25] MEDS: WELLBUTRIN XL (24 hour extended release) 300 MG PO (10:34)
[2023-10-25] MEDS: TYLENOL 650 MG PO ×2 (10:40→17:37)
--- NOTE | 2023-10-25 10:44 | CM ---
CM attempted bedside call due to precautions and no answer
Pt admitted two days prior for spinal fusion- dc to home with new WW/[employer]
Pt resides with her two adult sons, DIL, and 4 grandchildren
Multi-story townhhouse with 2STE, full flight to second floor
Pt is independent with her ADLs- has WW for use as needed
No financial insecurities
PCP- Marga Peralta
[facility]
Pt is COVID+ and requiring oxygen
No home oxygen
CM will follow for dc planning
Discharge Disposition- home, follow for home O2 needs
[2023-10-25 11:00] VITALS: BP 135/78
--- NOTE | 2023-10-25 11:46 | W.PN.ID1 ---
Addendum entered and electronically signed by Heidy Preciado MD 10/25/23 15:58:
notified by primary that patient was switched to remdesivir due to concerns about paxlovid and flomax.
I stopped flomax, held atorvastatin; stopped remdesivir and restarted paxlovid
note cat D drug interaction with outpatient eszopiclone 3 mg; agree with switch to ativan 1.5 mg instead; on dc would patient to continue ativan 1.5 mg qpm while on paxlovid.
Original Note:
Date of Service
Date of Service: October 25, 2023
Today's Communication
says shes been on the NC all day though room air is charted; 3L when I checked in the room. Asked RT to wean as able
Assessment / Plan
Mild Covid Infection
Hypoxemia - resolved
Immunosuppression (currently on hold)
RA
- says shes been on the NC all day though room air is charted; 3L when I checked in the room. Asked RT to wean as able
- mrsa screen pending
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
- agree with paxlovid plan 5 day course
- steroids - continue for the moment
- would not recommend antibiotics at this time
follow clinically
Chief Complaint
-: Other (covid)
Subjective / Review of Systems
afebrile
bp stable
says shes been on the NC all day though room air is charted
less dizzy
Vital Signs / Physical Exam
Vital Signs
Vital Signs
Temp Pulse Resp BP Pulse Ox
98.4 F 72 16 143/81 95
10/25/23 07:00 10/25/23 07:00 10/25/23 07:00 10/25/23 07:00 10/25/23 07:00
Physical Exam
Constitutional: No Acute Distress
Cardiovascular: Regular Rate and S1/S2; Negative Murmur or Rub
Pulmonary: Clear and Symmetric; Negative Wheezes or Rales
Gastrointestinal: Soft, Non Tender, Non Distended and Normal Bowel Sounds
Skin: Warm and Dry; Negative Rash or Jaundice
Objective Data
Lab Data
Lab Results
10/24/23 07:11
10/25/23 07:25
Estimated Creat Clear 85 ml/min 10/25/23 07:25
Total Bilirubin 0.6 mg/dl (0.2-1.3) 10/25/23 07:25
AST 18 U/L (14-36) 10/25/23 07:25
ALT 16 U/L (0-35) 10/25/23 07:25
Alkaline Phosphatase 75 U/L (38-126) 10/25/23 07:25
Most recent labs reviewed.
Micro Results:
10/24/23 17:20 MRSA Screen - Pending
Nose
[2023-10-25] MEDS: VEKLURY 250 MG IV (11:59)
[2023-10-25] MEDS: NSS 30 IV (11:59)
--- NOTE | 2023-10-25 14:38 | W.PN.HOSP.TC ---
Today's Communication/Plan
-
cw current COVID tx
wean O2 as able
DC planning
Assessment / Plan
Assessment / Plan
62-year-old female, presenting to the ER with dizziness, headache, lethargy. Patient tested COVID-positive in the ER.
IMPRESSION:
Dizziness
Hypoxemic respiratory insufficiency
Acute COVID infection
BL basal consolidation possible COVID pneumonia
Cervical spine stenosis s/p cervical spine fusion on 10/22/2023
Rheumatoid arthritis
Diabetes mellitus type 2
Hyperlipidemia
GERD
Depression
PLAN:
Dizziness
Likely from dehydration versus hypoxemia.
EKG�normal sinus rhythm
Patient had a history of BPPV/vertigo for which she uses meclizine as needed. Patient reports she did not require to use in the recent past.
Improved
Hypoxic respiratory insufficiency
Patient tested positive for COVID
Currently on 3 L nasal cannula
Maintain SpO2 92�96%
Started on dexamethasone 6 mg
Started on Remdisivir
Tessalon Perles for cough
Chest x-ray noted
Patient on chronic immunosuppression, ID consulted
Cervical spine stenosis s/p cervical spine fusion
Updated Dr. Chavarria.
For DVT prophylaxis, recommended SCDs, aspirin twice daily from tomorrow.
Continue clindamycin as prescribed by .
Continue pain control with Tylenol/oxycodone as needed
Rheumatoid arthritis
Enbrel on hold
Diabetes mellitus type 2
Continue sitagliptin, metformin, glimepiride
SSI
Hyperlipidemia
Continue atorvastatin
Depression/anxiety
Continue bupropion, escitalopram
Zolpidem
History of urethral stricture
Continue tamsulosin.
DVT prophylaxis�SCDs
Full code
Anticipated Discharge: 24 - 48 hours
Subjective/Interval History
-
Date of Service: October 25, 2023
Feeling improved from general systemic complaints.
Still some sore throat. Not much of cough. Denies shortness of breath.
No chest pain.
No nausea vomiting.
Objective Data
-
Labs:
Laboratory Results
10/25/23
07:25
Sodium 142
Potassium 4.3
Chloride 103
Carbon Dioxide 29
BUN 13
Creatinine 0.6
Glucose 137 H
Calcium 9.1
Total Bilirubin 0.6
AST 18
ALT 16
Alkaline Phosphatase 75
Vital Signs:
Vital Signs
Temp Pulse Resp BP Pulse Ox
98.5 F 84 16 135/78 95
10/25/23 11:00 10/25/23 11:00 10/25/23 11:00 10/25/23 11:00 10/25/23 11:00
I&O
10/24/23 10/25/23 10/26/23
06:59 06:59 06:59
Intake Total 0 / 1660
Balance 1659 / 1660
Review of Systems
-
Abdomen/GI: Denies Abdominal Pain
Neuro: Denies Dizzy
Physical Exam
-
General: Comfortable
Respiratory: Crackles (few bibasal) and Non Labored Respirations; Negative Accessory Resp Muscle Use
Cardiac: Regular Rhythm and S1/S2
Neuro: AO x 3
Psych: Calm
Data Reviewed
-
Labs: Labs Reviewed by me
[2023-10-25 15:00] VITALS: BP 135/79
[2023-10-25 19:24] VITALS: BP 130/79
[2023-10-25] MEDS: MUCINEX 600 MG PO (20:50)
[2023-10-25] MEDS: PAXLOVID 2X150 MG-100 MG DOSE PACK PO (21:01)
[2023-10-25] MEDS: AMBIEN 10 MG PO (21:05)
[2023-10-25] MEDS: ATIVAN 1.5 MG PO (21:05)
[2023-10-25] MEDS: TESSALON PERLES 200 MG PO (21:06)
[2023-10-25] MEDS: NEURONTIN 300 MG PO (21:06)
[2023-10-25 21:15] LABS: Glucose - Point of Care 267 mg/dl (70-99)
[2023-10-25 23:19] VITALS: BP 140/81
[2023-10-26] MEDS: NSS 1000 IV (00:43)
[2023-10-26 03:21] VITALS: BP 121/66
[2023-10-26 07:29] VITALS: BP 127/66
[2023-10-26] MEDS: FLORASTOR 250 MG PO (08:25)
[2023-10-26] MEDS: LEXAPRO 20 MG PO (08:25)
[2023-10-26] MEDS: AMARYL 2 MG PO (08:25)
[2023-10-26] MEDS: JANUVIA 50 MG PO (08:25)
[2023-10-26] MEDS: CLEOCIN 300 MG PO ×2 (08:26→13:13)
[2023-10-26] MEDS: VITAMIN D3 (cholecalciferol) 50 MCG PO (08:26)
[2023-10-26] MEDS: WELLBUTRIN XL (24 hour extended release) 300 MG PO (08:26)
[2023-10-26] MEDS: DECADRON 6 MG PO (08:27)
[2023-10-26] MEDS: OCEAN, SALINE MIST 2 SPRAYS NASAL (08:27)
[2023-10-26] MEDS: MUCINEX 600 MG PO (08:27)
[2023-10-26] MEDS: GLUCOPHAGE 1000 MG PO (08:31)
[2023-10-26] MEDS: TYLENOL 650 MG PO (08:33)
[2023-10-26] MEDS: PAXLOVID 2X150 MG-100 MG DOSE PACK 1 DOSE PO (08:34)
[2023-10-26 08:40] LABS: Glucose - Point of Care 102 mg/dl (70-99)
[2023-10-26 08:53] LABS: ALT (SGPT) 17 U/L (0-35); AST (SGOT) 17 U/L (14-36); Albumin 3.5 g/dl (3.5-5.0); Alkaline Phosphatase 70 U/L (38-126); Blood Urea Nitrogen 12 mg/dl (7-17); Calcium 9.4 mg/dl (8.4-10.2); Carbon Dioxide 28 mmol/L (22-30); Chloride 104 mmol/L (98-107); Estimated Creatinine Clearance 85 ml/min; Glucose 118 mg/dl (70-99); Potassium 3.5 mmol/L (3.5-5.1); Sodium 143 mmol/L (135-145); Total Bilirubin 0.3 mg/dl (0.2-1.3); Total Protein 6.1 g/dl (6.3-8.2); eGFR > 60.00
--- NOTE | 2023-10-26 11:07 | W.PN.HOSP.TC ---
Today's Communication/Plan
-
dc planning
Assessment / Plan
Assessment / Plan
62-year-old female, presenting to the ER with dizziness, headache, lethargy. Patient tested COVID-positive in the ER.
IMPRESSION:
Dizziness
Hypoxemic respiratory insufficiency
Acute COVID infection
BL basal consolidation possible COVID pneumonia
Cervical spine stenosis s/p cervical spine fusion on 10/22/2023
Rheumatoid arthritis
Diabetes mellitus type 2
Hyperlipidemia
GERD
Depression
PLAN:
Dizziness
Likely from dehydration versus hypoxemia.
EKG�normal sinus rhythm
Patient had a history of BPPV/vertigo for which she uses meclizine as needed. Patient reports she did not require to use in the recent past.
Resolved.
Hypoxic respiratory insufficiency
Patient tested positive for COVID
Currently on 3 L nasal cannula
Maintain SpO2 93 or more
Started on dexamethasone 6 mg
ID switched from Remdisivir to Paxlovid
Tessalon Perles for cough
Chest x-ray noted -BL basal consolidations possible COVID pneumonia
Patient on chronic immunosuppression, ID following
Follow-up chest x-ray in 2-3 weeks
Cervical spine stenosis s/p cervical spine fusion
Updated Dr. Chavarria.
For DVT prophylaxis, recommended SCDs, aspirin twice daily from tomorrow.
Continue clindamycin as prescribed by .
Continue pain control with Tylenol/oxycodone as needed
Rheumatoid arthritis
Enbrel on hold
Diabetes mellitus type 2
Continue sitagliptin, metformin, glimepiride
SSI
Hyperlipidemia
Continue atorvastatin
Depression/anxiety
Continue bupropion, escitalopram
Zolpidem
History of urethral stricture
Continue tamsulosin.
DVT prophylaxis�SCDs
Full code
Wean oxygen and if oxygenation is okay DC home today.
Anticipated Discharge: Today
Subjective/Interval History
-
Date of Service: October 26, 2023
Pt feeling improved.
No fevers.
Denies shortness of breath or cough. Improved sore throat.
No chest pain.
Objective Data
-
Labs:
Laboratory Results
10/26/23 10/26/23
06:52 08:23
Sodium Cancelled 143
Potassium Cancelled 3.5
Chloride Cancelled 104
Carbon Dioxide Cancelled 28
BUN Cancelled 12
Creatinine Cancelled 0.6
Glucose Cancelled 118 H
Calcium Cancelled 9.4
Total Bilirubin Cancelled 0.3
AST Cancelled 17
ALT Cancelled 17
Alkaline Phosphatase Cancelled 70
Vital Signs:
Vital Signs
Temp Pulse Resp BP Pulse Ox
98.1 F 74 17 127/66 99
10/26/23 07:29 10/26/23 07:29 10/26/23 07:29 10/26/23 07:29 10/26/23 07:29
I&O
10/25/23 10/26/23 10/27/23
06:59 06:59 06:59
Intake Total 1660 / 1660 1820 / 1820
Balance 1660 / 1660 1820 / 1820
Review of Systems
-
Abdomen/GI: Denies Abdominal Pain, Nausea, Vomiting or Diarrhea
Neuro: Denies Dizzy
Physical Exam
-
General: Comfortable
HEENT: Moist Mucous Membranes
Respiratory: Clear to Auscultation
Cardiac: Regular Rhythm and S1/S2
GI: Soft, Nontender, Nondistended and Normal Bowel Sounds
Neuro: AO x 3
Data Reviewed
-
Labs: Labs Reviewed by me
--- NOTE | 2023-10-26 11:26 | W.DS.TRANS ---
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
-
Discharge Instructions:
Discharge Diagnosis/Procedures COVID infection with Bibasal pneumonia; Acute
hypoxic respiratory insufficiency
Diet Diabetic, Carb Controlled
Activity As tolerated
Driving Restrictions As prior to admission
Others Tests Chest xray 2 view in 2-3 weeks -arrange through
PCP
Instructions:
Stand-Alone Forms:
Changes to Home Medications: Yes
Discharge Medications:
DC Medications w/original date entered in [facility]
atorvastatin 80 mg tablet 80 mg PO HS High Cholesterol 10/14/23
bupropion HCl 300 mg 24 hr tablet, extended release 300 mg PO DAILY Depression 10/14/23
cholecalciferol (vitamin D3) 50 mcg (2,000 unit) capsule (Vitamin D3) 50 mcg PO DAILY Supplement 10/14/23
escitalopram oxalate 20 mg tablet 20 mg PO DAILY Depression 10/14/23
eszopiclone 3 mg tablet 3 mg PO HS Sleep 10/14/23
etanercept 50 mg/mL (1 mL) subcutaneous syringe (Enbrel) 50 mg SC MO 10/14/23
glimepiride 2 mg tablet 2 mg PO HS Diabetes 10/14/23
linaclotide 290 mcg capsule (Linzess) 290 mcg PO DAILY Gastrointestinal Issue 10/14/23
prucalopride 2 mg tablet (Motegrity) 2 mg PO HS Gastrointestinal Issue 10/14/23
tamsulosin 0.4 mg capsule 0.4 mg PO DAILY Urinary Issue 10/14/23
tirzepatide 5 mg/0.5 mL subcutaneous pen injector (Mounjaro) 5 mg SC MO Diabetes 10/14/23
gabapentin 300 mg capsule 300 mg PO HS sleep/pain #10 caps 10/22/23
acetaminophen 650 mg tablet,extended release (Tylenol Arthritis Pain) 1,300 mg PO Q8HPRN PRN mild pain 10/24/23
lorazepam 1 mg tablet 1.5 mg PO HS Anxiety/Sleep 10/24/23
naproxen 500 mg tablet 500 mg PO BIDPRN PRN moderate pain 10/24/23
ondansetron 4 mg disintegrating tablet 4 mg PO Q6HPRN PRN n/v 10/24/23
oxycodone 5 mg tablet 5 mg PO Q6HPRN PRN 1 tab moderate pain, 2 tabs severe pain 10/24/23
sitagliptin phosphate 50 mg-metformin 1,000 mg tablet (Janumet) 2 tab PO DAILY Diabetes 10/24/23
Saccharomyces boulardii 250 mg capsule 250 mg PO BID #1 cap 10/26/23
clindamycin HCl 300 mg capsule 300 mg PO QID infection prevention #20 caps 10/26/23
dexamethasone 4 mg tablet 6 mg (1.5 x 4 mg) PO DAILY #7 tabs 10/26/23
docusate sodium 100 mg capsule 100 mg PO BID #1 cap 10/26/23
guaifenesin 600 mg tablet, extended release 12 hr 600 mg PO Q12 #10 tabs 10/26/23
nirmatrelvir 300 mg (150 mg x2)-ritonavir 100 mg tablet,dose pack (Paxlovid) 1 ea PO BID #30 ea 10/26/23
sennosides 8.6 mg tablet (Senna Laxative) 17.2 mg (2 x 8.6 mg) PO BID #1 tab 10/26/23
Home Medication Changes
New medication-Decadron 6 mg, Paxlovid, Mucinex
Pending Results: No
[2023-10-26 11:54] VITALS: BP 137/83
[2023-10-26 12:03] LABS: Glucose - Point of Care 205 mg/dl (70-99)
[2023-10-26] MEDS: NSS IV (13:13)
--- NOTE | 2023-10-26 14:14 | CM ---
Pt for discharge today
Has ride home with family member
Plan - home no needs
== END 2023-10-26 14:55 | disposition home or self-care (01) | DRG 177 ==
LOC: 2 NORTH 15:25
PROVIDERS: Student in an Organized Health Care Education/Training Program; ADMITTING PHYSICIAN Internal Medicine; ATTENDING PHYSICIAN Internal Medicine; CONSULT PHYSICIAN Student in an Organized Health Care Education/Training Program; EMERGENCY PHYSICIAN Emergency Medicine; FAMILY PHYSICIAN Physician Assistant Medical
PROC: 3E0333Z Introduction of Anti-inflammatory into Peripheral Vein, Percutaneous Approach (ICD-10-PCS; 2023-10-24)
PROC: 3E0DXGC Introduction of Other Therapeutic Substance into Mouth and Pharynx, External Approach (ICD-10-PCS; 2023-10-24)
PROC: XW033E5 Introduction of Remdesivir Anti-infective into Peripheral Vein, Percutaneous Approach, New Technology Group 5 (ICD-10-PCS; 2023-10-24)
DX: U07.1 COVID-19 (principal); J12.82 Pneumonia due to coronavirus disease 2019; D84.821 Immunodeficiency due to drugs; I10 Essential (primary) hypertension; E11.9 Type 2 diabetes mellitus without complications; E78.00 Pure hypercholesterolemia, unspecified; M06.9 Rheumatoid arthritis, unspecified; R09.02 Hypoxemia; E86.0 Dehydration; T39.4X5A Adverse effect of antirheumatics, not elsewhere classified, initial encounter; R06.89 Other abnormalities of breathing; F32.A Depression, unspecified; M48.02 Spinal stenosis, cervical region; K21.9 Gastro-esophageal reflux disease without esophagitis; F41.9 Anxiety disorder, unspecified; Z22.322 Carrier or suspected carrier of Methicillin resistant Staphylococcus aureus; Z98.1 Arthrodesis status; Z88.1 Allergy status to other antibiotic agents; Z88.0 Allergy status to penicillin; Z79.84 Long term (current) use of oral hypoglycemic drugs; Z79.60 Long term (current) use of unspecified immunomodulators and immunosuppressants
CPT/HCPCS: 71046; 80053; 81003; 82962; 83735; 85025; 87070; 87147; 87811; 93005; 96361; 96374; 99285; J0248

== ENCOUNTER → 2024-03-10 16:52 | Outpatient (REF) | payer OTHER, SELFPAY | LOC: HWRAD 16:52 | PROVIDERS: ATTENDING PHYSICIAN Physician Assistant; FAMILY PHYSICIAN Physician Assistant Medical | DX: M05.9 Rheumatoid arthritis with rheumatoid factor, unspecified (principal); M25.559 Pain in unspecified hip; M25.569 Pain in unspecified knee; M79.643 Pain in unspecified hand | CPT/HCPCS: 73130; 73523; 73560; 73565 ==

== ENCOUNTER → 2024-09-06 19:14 | Outpatient (REF) | payer OTHER, SELFPAY | LOC: WDC 19:14 | PROVIDERS: ATTENDING PHYSICIAN Obstetrics & Gynecology; FAMILY PHYSICIAN Physician Assistant Medical | DX: Z12.31 Encounter for screening mammogram for malignant neoplasm of breast (principal) | CPT/HCPCS: 77063; 77067 ==

== ENCOUNTER → 2024-11-18 07:47 | Outpatient (REF) | payer OTHER, SELFPAY | LOC: RAD 07:47 | PROVIDERS: ATTENDING PHYSICIAN Student in an Organized Health Care Education/Training Program; FAMILY PHYSICIAN Physician Assistant Medical | DX: D84.9 Immunodeficiency, unspecified (principal); E55.9 Vitamin D deficiency, unspecified; G50.9 Disorder of trigeminal nerve, unspecified; M05.79 Rheumatoid arthritis with rheumatoid factor of multiple sites without organ or systems involvement; M06.09 Rheumatoid arthritis without rheumatoid factor, multiple sites; M15.9 Polyosteoarthritis, unspecified; M16.12 Unilateral primary osteoarthritis, left hip; M17.12 Unilateral primary osteoarthritis, left knee; M19.041 Primary osteoarthritis, right hand; M19.042 Primary osteoarthritis, left hand; M25.552 Pain in left hip; M47.812 Spondylosis without myelopathy or radiculopathy, cervical region; M50.30 Other cervical disc degeneration, unspecified cervical region; M54.2 Cervicalgia; M70.62 Trochanteric bursitis, left hip; M79.672 Pain in left foot; R21 Rash and other nonspecific skin eruption; R53.82 Chronic fatigue, unspecified; Z11.1 Encounter for screening for respiratory tuberculosis; Z11.59 Encounter for screening for other viral diseases; Z51.81 Encounter for therapeutic drug level monitoring; Z79.899 Other long term (current) drug therapy | CPT/HCPCS: 77080 ==